=== PATIENT | male | born 1965 | race Caucasian/White ===

== ENCOUNTER 2016-12-19 19:01 | Emergency (ER) | payer MEDICARE, BC ==
[~2016-12-19] VITALS: Ht 167.6 cm; Wt 72.3 kg
[2016-12-19 19:08] VITALS: BP 145/94
== END 2016-12-19 21:29 | disposition home or self-care (01) ==
LOC: ED 21:23
DX: Z76.0 Encounter for issue of repeat prescription (principal); M79.1 Myalgia; G56.03 Carpal tunnel syndrome, bilateral upper limbs; M06.9 Rheumatoid arthritis, unspecified; R52 Pain, unspecified
CPT/HCPCS: 99283

== ENCOUNTER → 2021-03-29 | Outpatient (CLI) | payer BC, MEDICARE, OTHER | END | disposition home or self-care (01) | LOC: RAD 13:23 | PROVIDERS: ATTEND Family Medicine | DX: M22.41 Chondromalacia patellae, right knee (principal); M25.461 Effusion, right knee; G89.29 Other chronic pain; M25.561 Pain in right knee; R26.2 Difficulty in walking, not elsewhere classified ==

== ENCOUNTER → 2021-03-30 | Outpatient (CLI) | payer MEDICARE | END | disposition home or self-care (01) | LOC: RAD 13:44 | PROVIDERS: ATTEND Family Medicine | DX: M51.36 Other intervertebral disc degeneration, lumbar region (principal); M47.816 Spondylosis without myelopathy or radiculopathy, lumbar region; M25.551 Pain in right hip; M25.552 Pain in left hip; M25.561 Pain in right knee; R26.2 Difficulty in walking, not elsewhere classified; G89.29 Other chronic pain ==

== ENCOUNTER 2021-05-08 10:46 | Outpatient (CLI) | payer MEDICARE | END 2021-05-08 23:59 | disposition home or self-care (01) | LOC: RAD 10:46 | PROVIDERS: ATTEND Family Medicine | DX: M45.0 Ankylosing spondylitis of multiple sites in spine (principal); M25.551 Pain in right hip | CPT/HCPCS: 71046; 72190 ==